=== PATIENT | male | born 2005 | race African-American/Black ===

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

== ENCOUNTER 2024-11-29 17:09 | Emergency (ER) | payer SELFPAY ==
[~2024-11-29] VITALS: Ht 172.7 cm; Wt 82.0 kg
[~2024-11-29 17:09] MED LIST changes: +FLEXERIL5 M1 PO
[2024-11-29 17:17] VITALS: BP 204/99
[2024-11-29] MEDS ORDERED: KETOROLAC TROMETHAMINE 15 MG/ML SDV IV ONE (17:20)
[2024-11-29] MEDS ORDERED: Diph, Acellular Pertussis, Tet 0.5 ML/VIAL (Tdap) SDV IM ONE (17:20)
[2024-11-29] MEDS ORDERED: ONDANSETRON HCl 4 MG/2 ML SDV IV ONE (17:20)
[2024-11-29 17:31] LABS: BASO% 0.7 % (0-3); EOS% 1.4 % (0-8); HEMATOCRIT 50.4 % (39.0-50.0); HEMOGLOBIN 16.4 g/dl (14.0-18.0); IMMATURE GRANULOCYTES 0.3 % (0.0-5.0); LYMPH% 54.2 % (15-41); MEAN CELL VOLUME 89.8 fL CALC (80.0-100.0); MEAN CORPUSCULAR HGB 29.2 pG CALC (26.0-32.0); MEAN CORPUSCULAR HGB CONC 32.5 g/dL CAL (32.0-36.0); MONO% 8.3 % (2-13); NEUT# 2.7 thou/uL (1.82-7.42); NEUT% 35.1 % (42-76); RED BLOOD COUNT 5.61 mill/uL (4.70-6.10); RED CELL DISTRI WIDTH 12.8 % (11.5-15.5)
[2024-11-29 17:43] LABS: ALKALINE PHOSPHATASE 62 u/l (38-126); BUN 12 mg/dL (9-20); BUN/CREATININE RATIO 11 (12-20 (CALC)); CHLORIDE 106 mmol/l (95-108); CREATININE 1.1 mg/dL (0.7-1.3); ESTIMATED GFR 99 ML/MIN (>=90 (CALC)); ETHYL ALCOHOL 0 mg/dl (0-30); LIPASE 141 u/l (23-300); POTASSIUM 4.2 mmol/l (3.5-5.1); SODIUM 141 mmol/l (137-146); TOTAL PROTEIN 7.8 g/dL (6.3-8.2)
[2024-11-29 17:45] LABS: ALBUMIN 4.9 g/dL (3.2-5.0); ANION GAP 18 (6-22 (CALC)); BILIRUBIN, TOTAL 0.8 mg/dL (0.2-1.3); CARBON DIOXIDE 21 mmol/l (22-30); SGOT/AST 36 u/l (17-59)
[2024-11-29] MEDS ORDERED: CEPHALEXIN500 M1 PO (18:44)
[2024-11-29] MEDS ORDERED: NEOMYCIN-BACITRACIN-POLYMYXIN 0.5 GM/PAK PAK TOP ONE (19:55)
[2024-11-29 20:36] VITALS: BP 136/79
== END 2024-11-29 20:36 | disposition home or self-care (01) | DRG 605 ==
LOC: ED 17:09
PROVIDERS: Family Medicine
DX: S91.311A Laceration without foreign body, right foot, initial encounter (principal); M25.561 Pain in right knee; M25.562 Pain in left knee; M25.531 Pain in right wrist; V18.0XXA Pedal cycle driver injured in noncollision transport accident in nontraffic accident, initial encounter; M79.642 Pain in left hand; M25.522 Pain in left elbow; M54.2 Cervicalgia; S80.212A Abrasion, left knee, initial encounter; S80.211A Abrasion, right knee, initial encounter; S90.812A Abrasion, left foot, initial encounter; S60.211A Contusion of right wrist, initial encounter; S60.222A Contusion of left hand, initial encounter; S50.02XA Contusion of left elbow, initial encounter
CPT/HCPCS: J0690; J1885; J2405; Q9967